=== PATIENT | male | born 2000 | race Caucasian/White ===

== ENCOUNTER 2019-09-03 21:11 | Emergency (ER) | payer BC ==
[2019-09-03] MEDS ORDERED: Ibuprofen 600 MG TAB ONE (21:20)
--- NOTE | 2019-09-03 21:43 | RAD ---
LEFT ANKLE THREE VIEWS: 09/03/19 HISTORY: Pain. Injury. FINDINGS: Lateral soft tissue swelling. No fracture. There does not appear to be a fracture with regards to the distal tibia or fibula. There is an irregularity involving the medial talus. Possibility of injury c annot be excluded. Correlate clinically for point tenderness. IMPRESSION: 1. Soft tissue swelling. 2. Possible injury involving the medial talus. POS: [facility]
== END 2019-09-03 22:01 | disposition home or self-care (01) ==
LOC: SCSER 21:11
DX: S92.102A Unspecified fracture of left talus, initial encounter for closed fracture (principal); X50.9XXA Other and unspecified overexertion or strenuous movements or postures, initial encounter